=== PATIENT | female | born 1995 | race American Indian/Alaskan Native ===

== ENCOUNTER 2017-07-16 22:04 | Emergency (ER) | payer OTHER ==
[2017-07-16 22:33] VITALS: BP 120/82
[2017-07-16 23:11] LABS: HCG Qualitative,Urine Negative (Negative)
[2017-07-16] MEDS ORDERED: TYLENOL PO ONE (23:40)
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
== END 2017-07-17 00:45 | disposition home or self-care (01) ==
LOC: ED 22:04
DX: R51 Headache (principal); J45.909 Unspecified asthma, uncomplicated; V89.2XXA Person injured in unspecified motor-vehicle accident, traffic, initial encounter; Y93.89 Activity, other specified; Y99.8 Other external cause status; Y92.410 Unspecified street and highway as the place of occurrence of the external cause
CPT/HCPCS: 70450; 81025